=== PATIENT | female | born 1955 | race African-American/Black ===

== ENCOUNTER 2016-10-23 04:41 | Emergency (ER) | payer SELFPAY ==
[~2016-10-23] VITALS: Ht 172.7 cm; Wt 72.0 kg
[~2016-10-23 04:41] MED LIST: GABA100C14 PO; LOSA50TA2 PO; MULTI PO
[2016-10-23 04:59] VITALS: Ht 172.7 cm; Wt 72.0 kg
[2016-10-23 06:05] LABS: HEMATOCRIT 38.9 % (37.0-47.0); HEMOGLOBIN 13.1 g/dl (12.0-16.0); MEAN CORPUSCULAR HEMOGLOBIN 31.1 pg (29.0-33.0); MEAN CORPUSCULAR HGB CONC 33.7 g/dl (32.0-37.0); MEAN CORPUSCULAR VOLUME 92.3 fl (82.0-101.0); MEAN PLATELET VOLUME 8.3 fl (7.4-10.4); PLATELET COUNT 245 10^3/UL (140-440); RED BLOOD COUNT 4.21 10^6/ul (4.20-5.40); RED CELL DISTRIBUTION WIDTH 13.6 % (11.5-14.5); UNCORRECTED WBC 2.5 10^3/ul (4.8-10.8); WHITE BLOOD COUNT 2.5 10^3/ul (4.8-10.8)
[2016-10-23] MEDS ORDERED: DICLOFENAC SODIUM 37.5 MG/ML VIAL IV STA (06:09)
[2016-10-23] MEDS ORDERED: ONDANSETRON 4 MG INJ IV STA (06:09)
[2016-10-23 06:12] LABS: CONDITION 1; LH ANALYZER COMMENTS 1
[2016-10-23 06:15] LABS: ALBUMIN 4.1 g/dl (3.3-4.9); POTASSIUM 4.1 mmol/L (3.5-5.1)
[2016-10-23 06:17] LABS: CREATININE 0.55 mg/dl (0.44-1.00)
[2016-10-23 06:18] LABS: ALBUMIN/GLOBULIN RATIO 1.17; BILIRUBIN,INDIRECT 0.3 mg/dl (0-1.1); BILIRUBIN,TOTAL 0.3 mg/dl (0.2-1.3); CALCIUM 9.6 mg/dl (8.4-10.2); TOTAL PROTEIN 7.6 g/dl (6.1-8.1)
[2016-10-23] MEDS ORDERED: SOD CHLORIDE 0.9% 1,000 ML IV ONE (06:30)
[2016-10-23 06:53] LABS: ADD UMIC NO; URINE BILIRUBIN (Dip) NEGATIVE (NEGATIVE); URINE BLOOD (Dip) NEGATIVE (NEGATIVE); URINE COLOR LT. YELLOW (YELLOW); URINE GLUCOSE (Dip) NEGATIVE (NEGATIVE); URINE KETONES (Dip) NEGATIVE (NEGATIVE); URINE LEUKOCYTE ESTERASE (Dip) NEGATIVE (NEGATIVE); URINE NITRITE (Dip) NEGATIVE (NEGATIVE); URINE TOTAL PROTEIN (Dip) NEGATIVE (NEGATIVE); URINE UROBILINOGEN (Dip) 0.2 E.U./dL (0.1-1.0)
[2016-10-23 07:32] LABS: EOSINOPHILS # 0.1 10^3/ul (0.0-0.5); LYMPHOCYTES # 0.9 10^3/ul (0.8-2.9); MONOCYTE # 0.3 10^3/ul (0.3-0.9); NEUTROPHIL # 1.2 10^3/ul (1.6-7.5)
--- NOTE | 2016-10-23 07:53 | RADRPT ---
PROCEDURE: CT Abdomen and Pelvis without contrast. CLINICAL INDICATION: Mid/upper abdominal pain. TECHNIQUE: Axial imaging was obtained of the pelvis without intravenous contrast administration usi ng a multi-slice CT scanner. Standard CT scan of the pelvis without contrast protocols were perform ed. The total exam CTDI equals 9.74 mGy and the total exam DLP equals 566.79 mGy-cm. COMPARISON: CT abdomen and pelvis with contrast 03/10/2016 FINDINGS: The patient is rotated to the left. Again noted are bilateral tiny less than 3 mm non-obstructing r enal calculi. No evidence of hydronephrosis bilaterally. There is an ill-defined small low density in the lateral right mid kidney corresponding to a cyst that appears unchanged from the previous damaris dy. No new intra renal masses bilaterally. The liver spleen pancreas appear unremarkable. The gal lbladder is unremarkable. Allowing for difference in technique there is no change in the mild dilat ation of the extrahepatic biliary ductal system with the distal common bile duct demonstrating a max imal diameter of approximately 1 cm. No evidence of choledocholithiasis. Again noted is evidence o f previous appendectomy and partial resection of small bowel. There is colonic diverticulosis but no CT scan evidence of diverticulitis. The small bowel is unremarkable. Gastric wall thickening is li gabino due to lack of optimal distension and recommend clinical correlation. Negative for intra-abdominal free air free fluid abscesses or lymphadenopathy. Urinary bladder is unremarkable. There is mild basilar parenchymal scarring. There are chronic osseous findings. IMPRESSION: 1. Allowing for differences in technique no change in the CT scan of the pelvis with contrast 03/10. 2. Again noted are bilateral tiny nonobstructing renal calculi. No obstructive uropathy. 3. Low density lesion involving the right kidney appears unchanged consistent with cyst. 4. Evidence of previous appendectomy and small bowel resection. No evidence of bowel obstruction. 5. Colonic diverticulosis without CT scan evidence of diverticulitis. RPTAT:AAJJ Physician Marialuisa Date Time Electronically viewed and signed by Physician Marialuisa on 10/23/2016 07:52 BM/
[2016-10-23] MEDS ORDERED: NAPR-260 PO (08:15)
[2016-10-23] MEDS ORDERED: ONDA4TAB11 PO (08:15)
[2016-10-23] MEDS ORDERED: TRAM50TA2 PO (08:26)
[2016-10-23 08:33] VITALS: BP 135/63; PULSE 75; RESP 18; TEMP 98.3
--- NOTE | 2016-11-03 23:41 | ERD ---
DATE OF SERVICE: 10/23/2016 HISTORY OF PRESENT ILLNESS: This 61-year-old female comes in saying that she is having severe abdom inal pain related to her pancreatic cancer. She states that she is from out of town but came to [place] to get established with certain doctor whose name is Dr. Wilkerson. She is getting things in line so t hat she can see him. States that 2 days ago she ran out of her home medication [place] that she says that she got out of state. The abdominal pain is diffuse but mostly in her mid abdomen. She states that she has nausea, denies vomiting. Denies diarrhea or constipation. Denies fevers and chills. REVIEW OF SYSTEMS: Ten-point review of systems negative except as in HPI. PAST MEDICAL HISTORY: Pancreatic cancer per patient, hypertension. PAST SURGICAL HISTORY: Knee surgery, back surgery, hysterectomy, possible bowel resection. SOCIAL HISTORY: Denies tobacco, alcohol and other drugs. FAMILY HISTORY: Cardiac. PHYSICAL EXAMINATION: VITAL SIGNS: Temperature 98.3, pulse 80, blood pressure 158/67, respirations 18, oxygen saturation 99% on room air. GENERAL: No acute distress. HEENT: Normocephalic, atraumatic. Mucous membranes moist. LUNGS: Clear to auscultation bilaterally. CARDIAC: Regular rate and rhythm. No murmurs. ABDOMEN: Soft. Mild upper abdominal tenderness that disappears with distraction. No guarding or r ebound. Bowel sounds present in all 4 quadrants. EXTREMITIES: No cyanosis, clubbing or edema. NEUROLOGIC: Alert and oriented x3. No focal deficits. EXTREMITIES: No cyanosis, clubbing or edema. SKIN: No rashes or other lesions. PSYCHIATRIC: Appears calm. No signs of depression. LABORATORY DATA: CBC is significant for a white blood cell count of 2.5, otherwise no anemia or low platelets. BMP essentially within normal limits. Liver function tests within normal limits. Lipa se normal at 256. Urinalysis is negative for any acute infection. IMAGING: CT abdomen and pelvis interpretation by myself: I see no acute process, no pancreatic inf lammation. Small bilateral renal calculi with no obstruction. No intestinal obstruction per air-fl uid levels, no free air, no bony abnormalities. EMERGENCY DEPARTMENT COURSE AND MEDICAL DECISION MAKING: The patient was hydrated with a liter of n ormal saline and was also given diclofenac IV for pain. She was also given Zofran. The patient ask ed multiple times if she could have Dilaudid because that's what works for her best. Told her to gi ve the other medication a chance to start working, which it did. Told her the good news that she pacheco s no signs of pancreatic cancer on current screening data. She said that is such good news, then sa id the medication worked great and she was ready to leave. I do suspect drug seeking in this patien t. Although it is possible that she has come from out of town with no documentation of her pancreat ic cancer for treatment of her pancreatic cancer requiring today Dilaudid, there is currently no joan dence of this. Hopefully the patient has been remarkably cured of the cancer so early in its detect ion that she will do well with treatment. I am discharging her with naproxen, a few tramadol and Zo giovani. DISCHARGE DIAGNOSES: 1. Acute abdominal pain. 2. Pancreatic cancer. 3. Drug-seeking behavior. DISPOSITION: Home in stable condition. Dictated By: DOM UMANA/FRANCISCO J Conf#: [id number] DID#: [id number]
== END 2016-10-23 08:34 | disposition home or self-care (01) ==
LOC: E/R 04:41
DX: R10.10 Upper abdominal pain, unspecified (principal); C25.9 Malignant neoplasm of pancreas, unspecified; I10 Essential (primary) hypertension; Z72.89 Other problems related to lifestyle
CPT/HCPCS: 36415; 74176; 80053; 81003; 83690; 85025; 96374; 96375; 99285; J2405; J7030